=== PATIENT | male | born 1995 | race African-American/Black ===

== ENCOUNTER 2019-08-09 19:32 | Emergency (ER) | payer BC | END 2019-08-09 20:59 | disposition left against medical advice (07) | LOC: ERS 19:32 | DX: Z53.21 Procedure and treatment not carried out due to patient leaving prior to being seen by health care provider (principal) ==

== ENCOUNTER 2020-09-26 10:22 | Emergency (ER) | payer SELFPAY ==
[2020-09-26 17:02] LABS: SARS-CoV-2 PCR by NAA Not Detected (NotDetected)
== END 2020-09-26 11:25 | disposition home or self-care (01) ==
LOC: ERS 10:22
DX: R11.2 Nausea with vomiting, unspecified (principal); R19.7 Diarrhea, unspecified; Z20.822 Contact with and (suspected) exposure to COVID-19; F17.210 Nicotine dependence, cigarettes, uncomplicated
CPT/HCPCS: 87635; 99283; U0003; U0005

== ENCOUNTER 2020-10-17 10:16 | Emergency (ER) | payer BC, SELFPAY ==
[2020-10-17] MEDS ORDERED: Ketorolac Tromethamine 30 MG/ML VIAL ONE (10:32)
[2020-10-17] MEDS ORDERED: Metoclopramide HCl 10 MG/2 ML VIAL ONE (10:32)
[2020-10-17] MEDS ORDERED: Acetaminophen 500 MG TAB ONE (10:32)
== END 2020-10-17 11:05 | disposition home or self-care (01) ==
LOC: ERS 10:16
DX: R51.9 Headache, unspecified (principal)
CPT/HCPCS: 96372; 99283; J1885; J2765